=== PATIENT | male | born 1960 | race Caucasian/White ===

== ENCOUNTER 2024-04-01 22:11 | Emergency (ER) | payer OTHER ==
[~2024-04-01 22:11] MED LIST: Iopamidol-370 76% 500 ML MDV (1 ML CHARGE) ONE
[2024-04-01 23:17] LABS: #Basophils Less than 0.03 10x3/uL (0.0-0.2); %Basophils 0.5 % (0.0-1.0); %Eosinophils 7.1 % (0.0-10.0); %Lymphocytes 14.8 % (21.0-51.0); %Monocytes 2.5 % (0.0-10.0); %Neutrophils 75.1 % (42.0-75.0); Hematocrit 37.4 % (42.0-52.0); Hemoglobin 12.3 g/dL (14.0-18.0); Mean Corpuscular HGB CONC 32.9 g/dL (32.0-36.0); Mean Corpuscular Hemoglobin 29.1 pg (27.0-31.0); Mean Corpuscular Volume 88.4 fL (78.0-98.0); Mean Platelet Volume 10.6 fL (7.4-10.4); Platelet Count 177 10x3/uL (130-400); RBC Distribution Width 13.6 % (11.5-14.5); Red Blood Cell (RBC) Count 4.23 mill/uL (4.70-6.10)
[2024-04-01 23:37] LABS: ALT (SGPT) 25 U/L (8-55); AST (SGOT) 30 U/L (5-34); Albumin 3.3 g/dL (3.4-4.8); Alkaline Phosphatase 96 U/L (40-110); Anion Gap 12 mmol/L (10-20); BUN (Urea Nitrogen) 16 mg/dL (8.4-25.7); Bilirubin, Total 0.6 mg/dL (0.2-1.2); Calc. Creatinine Clearance 0 mL/min (70-130); Calcium 9.1 mg/dL (7.8-10.44); Carbon Dioxide 25 mmol/L (23-31); Chloride 103 mmol/L (98-107); Estimated GFR 103; Globulin 3.7 g/dL (2.4-3.5); Glucose 87 mg/dL (80-115); Magnesium 1.9 mg/dL (1.6-2.6); Sodium 136 mmol/L (136-145)
[2024-04-01 23:42] LABS: Troponin I Less than 0.010 ng/mL (< 0.028)
[2024-04-02] MEDS ORDERED: Dexamethasone 10 MG/ML VIAL ONE (00:37)
[2024-04-02] MEDS ORDERED: Ketorolac Tromethamine 30 MG (1 mL) VIAL ONE (00:37)
== END 2024-04-02 01:27 ==
LOC: ERS 22:11 → EEVIPCON 22:11 → ERS 04-02 01:27
DX: I89.0 Lymphedema, not elsewhere classified (principal); R91.8 Other nonspecific abnormal finding of lung field; J44.9 Chronic obstructive pulmonary disease, unspecified; Z87.891 Personal history of nicotine dependence
CPT/HCPCS: 36415; 70491; 71275; 80053; 83605; 83735; 84484; 85025; 93005; 96374; 96375; J1100; J1885; Q9967